=== PATIENT | female | born 1950 | race Caucasian/White ===

== ENCOUNTER 2017-06-07 07:55 | Day surgery (SDC) | payer MEDICARE, OTHER ==
[2017-06-07] MEDS ORDERED: Propofol 200 MG/20 ML SDV IV ONE (07:56)
[2017-06-07] MEDS ORDERED: Lactated Ringers 1,000 ML IV SCH (08:00)
--- NOTE | 2017-06-07 10:13 | PCM.OPNOTE ---
- General Post-Op/Procedure Note Date of Surgery/Procedure: 06/07/17 Operative Procedure(s): c scope with bx Findings: rectal polyp internal hemorrhoids Pre Op Diagnosis: history of colon polyp. hematochezia Post-Op Diagnosis: rectal polyp. internal hemorrhoids Anesthesia Technique: MAC Primary Surgeon: Camilo Banks Anesthesia Provider: Nicole Murray Pathology: rectal polyp Complications: None Condition: Good Free Text/Narrative:: see dictation
--- NOTE | 2017-06-07 15:05 | OR ---
DATE OF OPERATION: 06/07/2017 SURGEON: Camilo Banks MD PROCEDURE PERFORMED: Colonoscopy with cold forceps biopsy. PREOPERATIVE DIAGNOSIS: Personal history of colon polyps and hematochezia. POSTOPERATIVE DIAGNOSIS: Hyperplastic-appearing polyp of the rectum and internal hemorrhoids. INDICATIONS FOR PROCEDURE: Ms. Howell is a 66-year-old white female who has a history of colon polyps and she recently has experienced some bright red blood per rectum. She was offered and accepted a colonoscopy. DESCRIPTION OF OPERATION: After an excellent IV sedation was administered, digital rectal exam was performed. No marked abnormality was noted. The flexible colonoscope was inserted and advanced to the cecum without difficulty. The prep was excellent. The following findings were noted. Ascending colon, unremarkable. Transverse colon, unremarkable. Descending colon, unremarkable. Sigmoid, unremarkable. Rectum, a small hyperplastic-appearing lesion, biopsied with cold biopsy forceps and sent for permanent and at the anus, there was some evidence of internal hemorrhoids which appeared to be the cause of her bleeding. The colon was deflated as the scope was removed. The patient tolerated the procedure well and was taken to recovery in good condition. /[id number] /MODL
== END 2017-06-07 11:15 | disposition home or self-care (01) ==
LOC: FB.SDS 07:55
PROVIDERS: ATTEND Surgery
DX: Z12.11 Encounter for screening for malignant neoplasm of colon (principal); D12.8 Benign neoplasm of rectum; K64.8 Other hemorrhoids; Z86.010 Personal history of colon polyps; K92.1 Melena; E78.2 Mixed hyperlipidemia; Z79.899 Other long term (current) drug therapy; Z90.49 Acquired absence of other specified parts of digestive tract
CPT/HCPCS: 00811-QZ; 88305; J2704; J7120

== ENCOUNTER 2023-04-03 13:47 | Emergency (ER) | payer MEDICARE, OTHER ==
[2023-04-03] MEDS ORDERED: traMADol 50 MG Tab PO ONE (13:48)
== END 2023-04-03 15:14 | disposition home or self-care (01) ==
LOC: FB.ED 13:47
DX: S93.402A Sprain of unspecified ligament of left ankle, initial encounter (principal); X50.1XXA Overexertion from prolonged static or awkward postures, initial encounter; Y93.73 Activity, racquet and hand sports; Z90.49 Acquired absence of other specified parts of digestive tract
CPT/HCPCS: 73610; 99283; A9270

== ENCOUNTER 2024-09-18 19:43 | Emergency (ER) | payer MEDICARE ==
[2024-09-18] MEDS: Ondansetron 4 MG Tab.DIS PO ONE (20:30)
[2024-09-18] MEDS: metroNIDAZOLE 500 MG Tab PO ONE (20:30)
[2024-09-18] MEDS: Ciprofloxacin 500 MG Tab PO ONE (20:30)
[2024-09-18] MEDS: traMADol 50 MG Tab PO ONE (20:31)
== END 2024-09-18 21:25 | disposition home or self-care (01) ==
LOC: FB.ED 19:43
DX: K57.92 Diverticulitis of intestine, part unspecified, without perforation or abscess without bleeding (principal); Z86.16 Personal history of COVID-19; Z90.49 Acquired absence of other specified parts of digestive tract; Z79.899 Other long term (current) drug therapy
CPT/HCPCS: 99283; A9270; Q0162